=== PATIENT | male | born 1990 | race Caucasian/White ===

== ENCOUNTER 2018-01-20 15:43 | Emergency (ER) | payer OTHER ==
[~2018-01-20] VITALS: Ht 172.7 cm; Wt 72.6 kg
[2018-01-20] MEDS ORDERED: PROPRANOLOL HCL20 MG (15:52)
== END 2018-01-20 19:13 | disposition home or self-care (01) ==
LOC: ER 15:43
DX: M77.52 Other enthesopathy of left foot and ankle (principal); M79.672 Pain in left foot

== ENCOUNTER → 2022-08-01 | Emergency (ER) | payer OTHER ==
[~2022-08-01] VITALS: Ht 172.7 cm; Wt 77.1 kg
[~2022-08-01] MED LIST: AMANTADINE100 MG; DESCOVY 120-151 EACH; PROPRANOLOL HCL20 MG
== END | disposition home or self-care (01) ==
LOC: ER 15:26
DX: F41.9 Anxiety disorder, unspecified (principal); Z88.8 Allergy status to other drugs, medicaments and biological substances

== ENCOUNTER 2022-11-03 11:45 | Emergency (ER) | payer OTHER ==
[~2022-11-03] VITALS: Ht 172.7 cm; Wt 74.8 kg
== END 2022-11-03 15:33 | disposition home or self-care (01) ==
LOC: ER 11:45
DX: S76.301A Unspecified injury of muscle, fascia and tendon of the posterior muscle group at thigh level, right thigh, initial encounter (principal); Z91.041 Radiographic dye allergy status

== ENCOUNTER 2022-11-06 11:20 | Outpatient (CLI) | payer OTHER | END 2022-11-06 11:44 | disposition home or self-care (01) | LOC: SONOGRAMA 11:20 | DX: S76.301A Unspecified injury of muscle, fascia and tendon of the posterior muscle group at thigh level, right thigh, initial encounter (principal) ==